=== PATIENT | female | born 1945 | race Caucasian/White ===

== ENCOUNTER 2017-11-20 19:37 | Observation (INO) | payer MEDICARE, OTHER ==
[~2017-11-20] VITALS: Ht 167.6 cm; Wt 108.0 kg
--- NOTE | ~2017-11-20 | HEMODYNAMI ---
PATIENT:CHUYITA WYLIE I MEDICAL RECORD: [id number] : 43 [facility] [id number] ADMISSION DATE: 11/20/17 Generatedon:11/21/201716:32 Patient name: CHUYITA WYLIE Patient #: [id number] SSN: DO B: 1945 Date of study: 11/21/2017 Page: Of Hemodynamic Procedure Report Patient Data Patient Demographics Procedure consent was obtained First Name: CHUYITA Gender: Female Last Name: DEJAN : 1945 [facility] Initial: I Age: 72 year(s) Patient #: [id number] Race: Unknown Additional ID: [id number] Contact details Address: [address] State: [place] City: [place] Zip code: [address] Past Medical History Allergies Allergen Reaction Date Comments Reported Penicillins 11/21/2017 Aspirin 11/21/2017 Other allergy 11/21/2017 lisinopril Admission Admission Data Admission Date: 11/20/2017 Admission Time: 21:53 Room #: 2135 Procedure Procedure Types Cath Procedure Diagnostic Procedure [facility] w/Coronaries PCI Procedure Coronary Stent Coronary Stent Initial x2 Miscellaneous Procedures Moderate Sedation up to 15 minutes Procedure Description Procedure Date Procedure Date: 11/21/2017 Procedure Start Time: 16:13 Procedure End Time: 16:31 Procedure Staff Name Function Linus Melendrez MD Performing Physician Edwige Mac RT Monitor Ammon Vallejo RT Scrub Ling Vanegas RN Nurse Procedure Data Cath Procedure Fluoroscopy Diagnostic fluoroscopy Total fluoroscopy Time: 3.3 time: 3.3 min min Diagnostic fluoroscopy Total fluoroscopy dose: 669 dose: 669 mGy mGy Contrast Material Contrast Material Type Amount (ml) Isovue 300 94 Entry Location Entry Primary Successful Side Size Upsize Upsize Entry Closure Succes sful Closure Location (Fr) 1 (Fr) 2 (Fr) Remarks Device Remarks Femoral Right 5 Fr 6 Fr Exoseal artery Short Estimated blood loss: 10 ml Diagnostic catheters Device Type Used For End Catheter Placement MULTIPACK Pigtail 5 Fr LV Angiography catheter MULTIPACK JL 4.0 5Fr Left Coronary catheter Angiography MULTIPACK 3DRC 5Fr Right Coronary catheter Angiography Procedure Complications No complications Procedure Medications Medication Administration Route Dosage 0.9% NaCl I.V. 100 ml/hr Oxygen NC 3 l/min Lidocaine 2% added to field Heparin Flush Bag added to field (1000units/500ml NS) Fentanyl I.V. 50 mcg Versed I.V. 1 mg Plavix P.O. 75 mg Fentanyl I.V. 50 mcg Versed I.V. 1 mg Heparin Bolus I.V. 4000 units Hemodynamics Rest Heart Rate: 83 (bpm) Snapshots Pre Cath Intra NCS Post Cath Vital Signs Time Heart Resp SPO2 etCO2 NIBP (mmHg) Rhythm Pain Sedation Rate (ipm) (%) (mmHg) Status Level (bpm) 15:54:57 85 20 98 0 167/87(124) NSR 0 (11) 10(A) , No pain 16:00:12 88 15 95 0 159/85(116) NSR 0 (11) 10(A) , No pain 16:05:17 92 18 97 0 130/67(99) NSR 0 (11) 10(A) , No pain 16:10:23 90 19 95 0 110/67(93) NSR 0 (11) 10(A) , No pain 16:16:29 88 16 94 0 171/88(130) NSR 0 (11) 9(A) , No pain 16:21:47 88 21 95 0 148/75(115) NSR 0 (11) 9(A) , No pain 16:26:56 92 20 98 0 167/88(134) NSR 0 (11) 10(A) , No pain Medications Time Medication Route Dose Verified Delivered Reason Not es Effectiveness by by 15:53:43 0.9% NaCl I.V. 100ml/hr Linus Dubon used for Parvin Vanegas RN procedure 15:53:51 Oxygen NC 3 l/min Linus Dubon Per physician Parvin Vanegas RN 15:53:57 Lidocaine 2% added Linus Barriga for local to Parvin Melendrez MD anesthetic field 15:54:04 Heparin Flush added Linus Barriga used for Bag to Parvin Melendrez MD procedure (1000units/500ml field NS) 16:12:07 Fentanyl I.V. 50 mcg Linus Dubon for sedation Parvin Vanegas RN 16:12:19 Versed I.V. 1 mg Linus Dubon for sedation Parvin Vanegas RN 16:13:26 Plavix P.O. 75 mg Linus Dubon for Parvin Vanegas RN antiplatelet therapy 16:14:28 Fentanyl I.V. 50 mcg Linus Dubon for sedation Parvin Vanegas RN 16:14:34 Heparin Bolus I.V. 4000 Linus Dubon for vinay ified units Parvin Vanegas RN anticoagulation by 16:14:34 Versed I.V. 1 mg Linus Dubon for sedation Parvin Vanegas RN Procedure Log Time Note 15:30:11 Ling Vanegas RN sent for patient. Start room use. 15:30:12 Time tracking: Regular hours 15:30:15 Plan of Care:Hemodynamics will remain stable., Cardiac rhythm will remain stable., Comfort level will be maintained., Respiratory function will remain adequate., Patient/ family verbilizes understanding of procedure., Procedure tolerated without complication., Recovers from procedure without complications.. 15:42:42 Patient received from PCU to CCL 1 Alert and oriented. Tansferred to table in Supine position. 15:42:43 Warm blankets applied, and alex hugger turned on for patient comfort. 15:42:44 Correct patient and procedure confirmed by team. 15:42:45 Signed procedure consent form obtained from patient. 15:42:46 ECG and BP/O2 sat monitors applied to patient. 15:42:47 Full Disclosure recording started 15:53:28 Vital chart was started 15:53:43 0.9% NaCl 100ml/hr I.V. was administered by Ling Vanegas RN; used for procedure; 15:53:51 Oxygen 3 l/min NC was administered by Ling Vanegas RN; Per physician; 15:53:57 Lidocaine 2% added to field was administered by Linus Melendrez MD; for local anesthetic; 15:54:04 Heparin Flush Bag (1000units/500ml NS) added to field was administered by Linus Melendrez MD; used for procedure; 15:55:14 Baseline sample Acquired. 15:55:18 Rhythm: sinus rhythm 15:55:30 H&P Date Dictated: 11/21/2017 Within 30 days and on chart.. 15:55:32 Pre-procedure instructions explained to patient. 15:55:32 Pre-op teaching completed and patient verbalized understanding. 15:55:33 Family in waiting room. 15:55:36 Patient NPO since Midnight. 15:55:42 Patient allergic to Penicillins 15:55:47 Patient allergic to Aspirin 15:56:00 Patient allergic to Other allergylisinopril 15:56:04 Is the patient allergic to Iodine/contrast media? No. 15:56:05 Is patient on blood thinner?No 15:56:09 Patient diabetic? No. 15:57:40 Previous problem with sedation/anesthesia? No ? 15:57:41 Snore? Yes 15:57:42 Sleep apnea? No 15:57:43 Deviated septum? No 15:57:44 Opens mouth fully? Yes 15:57:45 Sticks out tongue? Yes 15:57:47 Airway obstruction? No ? 15:57:48 Dentures? No ? 15:57:50 Pre procedure: right dorsailis pedis pulse 1+ Palpable, but thready & weak; easily obliterated 15:57:52 Patient pain scale 0/10 ?. 15:57:59 IV patent on arrival in right hand with 0.9% NaCl at O. 15:58:08 Lab results completed and on chart. 15:58:13 Right groin area was prepped with chlora-prep and draped in sterile fashion 15:58:20 Alarms reviewed by R. N. 15:58:20 Sharps counted by scrub and verified by R.N. 15:58:24 Use device set Femoral Dx 15:58:25 ACIST Syringe (61133) opened to sterile field. 15:58:25 Bag Decanter (2002S) opened to sterile field. 15:58:26 Medline Cath Pack ([id number]) opened to sterile field. 15:58:26 SHEATH 5FR [place] (RNH595) opened to sterile field. 15:58:27 DIAGNOSTIC WIRE .035 260cm J wire (799397) opened to sterile field. 15:58:28 ACIST Hand Control (48630) opened to sterile field. 15:58:28 ACIST Manifold (74595) opened to sterile field. 15:58:29 DIAGNOSTIC Multipack 5Fr catheter set (ES8909) opened to sterile field. 15:58:30 Tegaderm 4 x 4 (1626W) opened to sterile field. 15:58:30 PERCUTANEOUS ENTRY 19GA needle opened to sterile field. 16:04:45 Zero performed for pressure channel P1 16:11:34 Final Timeout: patient, procedure, and site verified with staff and physician. All members of the team are in agreement. 16:11:38 Right groin site verified by team. 16:11:41 Physical assessment completed. ASA score P 2 - A patient with mild systemic disease as per Linus Melendrez MD. 16:11:44 Sedation plan: IV Moderate Sedation Medication:Versed, Fentanyl 16:12:07 Fentanyl 50 mcg I.V. was administered by Ling Vanegas RN; for sedation; 16:12:19 Versed 1 mg I.V. was administered by Ling Vanegas RN; for sedation; 16:13:20 Procedure started. 16:13:26 Plavix 75 mg P.O. was administered by Ling Vanegas RN; for antiplatelet therapy; 16:13:26 Local anesthetic to right femoral artery with Lidocaine 2% by Linus Melendrez MD.INITIAL ACCESS ONLY 16:14:17 A 5 Fr sheath was inserted into the Right Femoral artery 16:14:28 Fentanyl 50 mcg I.V. was administered by Ling Vanegas RN; for sedation; 16:14:34 Heparin Bolus 4000 units I.V. was administered by Ling Vanegas RN; for anticoagulation; verified by 16:14:34 Versed 1 mg I.V. was administered by Ling Vanegas RN; for sedation; 16:14:52 A MULTIPACK Pigtail 5 Fr catheter was advanced over the wire and used for LV Angiography. 16:15:00 LV gram done using ANDRADE 16:15:06 EF : 55 % 16:15:09 Injector settings: Ml/sec: 10, Volume: 20, 16:15:11 Catheter removed. 16:15:20 A MULTIPACK JL 4.0 5Fr catheter was advanced over the wire and used for Left Coronary Angiography. 16:16:43 Use device set [facility] PCI 16:16:51 INFLATOR Merit BasixCompak (VQ8865) opened to sterile field. 16:16:52 SHEATH 6FR [place] (OFD787) opened to sterile field. 16:16:56 Catheter removed. 16:17:03 A MULTIPACK 3DRC 5Fr catheter was advanced over the wire and used for Right Coronary Angiography. 16:18:06 Catheter removed. 16:18:12 WHISPER 300cm guide wire ([id number]) opened to sterile field. 16:18:16 GUIDE 6FR XBLAD 3.5 catheter ([id number]) opened to sterile field. 16:18:34 Sheath upsized to a 6 Fr Short. 16:19:07 6 Fr XBLAD 3.5 guide catheter was inserted over the wire 16:19:43 Guide Catheter removed. unable to cannulate vessel. 16:19:47 GUIDE 6FR XBLAD 4.0 catheter ([id number]) opened to sterile field. 16:19:59 6 Fr XBLAD 4.0 guide catheter was inserted over the wire 16:21:37 Whisper wire advanced. 16:22:23 Inflation Number: 1 A OBDULIA OTW 3.5 x 18 stent ([id number]) was prepped and advanced across the Mid CX. The stent was deployed at 13 NU for 0:05 (min:sec). 16:22:37 Stent catheter was removed intact over wire. 16:22:42 Wire redirected to LAD. 16:24:50 Inflation Number: 1 A OBDULIA OTW 2.5 x 38 stent ([id number]) was prepped and advanced across the Mid LAD. The stent was deployed at 19 NU for 0:07 (min:sec). 16:25:06 Stent catheter was removed intact over wire. 16:25:06 Wire removed. 16:25:07 Guide catheter removed. 16:25:13 Sheath removed intact; hemostasis achieved with Exoseal to the Right Femoral artery. 16:25:23 Procedure ended.(Physican Out) 16:26:06 Fluoroscopy time 03.30 minutes. 16:26:14 Fluoroscopy dose: 669 mGy 16:26:14 Flurop Dose total: 669 16:26:17 Contrast amount:Isovue 300 94ml. 16:26:19 Sharps counted by scrub and verified by R.N. 16:26:20 Insertion/operative site no bleeding no hematoma. 16:26:22 Post-op/insertion site Right Femoral artery dressed using a 4 x 4 and Tegaderm. 16:26:25 Post right femoral artery:stable, clean and dry 16:26:27 Post Procedure Pulses reassessed and unchanged 16:26:29 Post-procedure physical assessment completed. ASA score P 2 - A patient with mild systemic disease as per Linus Melendrez MD. 16:26:31 Post procedure rhythm: unchanged. 16:26:34 Estimated blood loss: 10 ml 16:26:35 Post procedure instruction explained to patient.Patient verbalizes understanding. 16:26:36 Patient needs reinforcement of post procedure teaching. 16:26:54 Procedure type changed to Cath procedure, Diagnostic procedure, LHC, LHC w/Coronaries, PCI procedure, Coronary Stent, Coronary Stent Initial x2, Miscellaneous Procedures, Moderate Sedation up to 15 minutes 16:30:19 EXOSEAL 6Fr (EX600) opened to sterile field. 16:30:39 Procedure and supply charges have been captured, reviewed, submitted and are correct. 16:30:43 Procedure Complication : No complications 16:30:45 See physician's report for complete and final results. 16:31:38 Vital chart was stopped 16:31:41 Report given to PCU. 16:31:44 Patient transfered to PCU with Bed. 16:31:53 Procedure ended. 16:31:53 Full Disclosure recording stopped 16:31:58 End room use (Document Last) Intervention Summary Intervention Notes Time ActionType Lesion and Equipment Action# Pressure Duration Attributes Used 16:22:23 Place stent Mid CX OBDULIA OTW 3.5 1 13 00:05 x 18 stent ([id number]) 16:24:50 Place stent Mid LAD OBDULIA OTW 2.5 1 19 00:07 x 38 stent ([id number]) Device Usage Item Name Manufacture Quantity Catalog Hospital Part Current Mini mal Lot# / Number Charge Number Stock Stock Serial# Code ACIST Syringe Acist 1 11209 392084 368960 388052 20 (50979) Medical Systems Inc Bag Decanter Microtek 1 198004 87202 470499 5 () Medical Inc. Medline Cath Cardinal 1 [id number] 094821 78200 184863 5 Unified Inbox Health ([id number]) SHEATH 5FR Terumo 1 HFB210 373051 968035 746335 40 [place] (RDU454) DIAGNOSTIC St Bud 1 920516 156467 041462 857858 30 WIRE .035 260cm J wire (901319) ACIST Hand Acist 1 25777 862014 583742 455069 5 Control Medical (73479) Systems Inc ACIST Acist 1 33153 095486 426483 861560 5 Manifold Medical (05393) Systems Inc DIAGNOSTIC Cardinal 1 TY1259 616915 21568 987487 30 Multipack 5Fr Health catheter set (WM1231) Tegaderm 4 x 3M 1 1626W 949846 053580 958414 5 4 (1626W) PERCUTANEOUS Cook Medical 1 T57816 761948 815326 5 ENTRY 19GA needle MULTIPACK Cardinal 1 626800 5 Pigtail 5 Fr Health catheter MULTIPACK JL Cardinal 1 728200 5 4.0 5Fr Health catheter INFLATOR [facility] 1 UO7514 823255 043801 102338 15 Qualgenix BasixCompak (XN8509) SHEATH 6FR Terumo 1 ETG219 240400 806233 468717 40 [place] (FLX434) MULTIPACK Cardinal 1 284951 5 3DRC 5Fr Health catheter WHISPER 300cm Sigala 1 [id number] 348558 595143 353855 5 guide wire Vascular (6266051CC) GUIDE 6FR Cardinal 1 [id number] 296947 852046 023491 10 XBLAD 3.5 Health catheter (12523119) GUIDE 6FR Cardinal 1 41168031 019333 338803 270727 3 XBLAD 4.0 Health catheter (70517503) OBDULIA OTW 3.5 Medtronic 1 [id number] 443274 4020773 053294 5 [id number] x 18 stent ([id number]) OBDULIA OTW 2.5 Medtronic 1 [id number] 291766 11477 302080 5 [id number] x 38 stent ([id number]) EXOSEAL 6Fr Cardinal 1 EX600 422904 294989 601983 10 (EX600) Health Signature Audit [place] Stage Time Signature Unsigned Intra-Procedure 11/21/2017 Edwige 4:32:17 PM Counts RT(R) Signatures Monitor : Edwige Signature : Counts RT Date : Time : [place] [address] [place] [address]
--- NOTE | ~2017-11-20 | OP ---
PATIENT NAME: CHUYITA WYLIE I MEDICAL RECORD: [id number] :43 LOCATION:D.M2 D.2135 ADMISSION DATE:11/20/17 SURGEON: PRIMO PISANO MD DATE OF OPERATION: 11/21/2017 DATE OF SERVICE: 11/21/2017 PROCEDURES: 1. PTCA stent LAD. 2. PTCA stent left circumflex. 3. Left heart catheterization. 4. Selective coronary angiography. 5. Left ventriculogram. INDICATION: Angina and coronary artery disease. PROCEDURE IN DETAIL: After informed consent was obtained and after a detailed explanation of the risks, benefits as well as alternative therapies, the patient elected to proceed with angiogram and angioplasty. The right femoral area was prepped and draped in normal sterile fashion. The right femoral artery was cannulated via modified Seldinger technique with placement of 5-Djiboutian sheath. All catheters exchanged through this sheath. FINDINGS: The left ventriculogram was performed in standard 30-degree ANDRADE view, reveals good cardiac wall motion throughout all segments. Overall ejection fraction estimated at 55%. SELECTIVE CORONARY ANGIOGRAPHY: 1. Left main showed no significant angiographic disease. 2. Left anterior descending has a long area of greater than 70% stenosis in the mid vessel. 3. Left circumflex has greater than 70% stenosis in the mid vessel. 4. Right coronary has moderate irregularities, but no flow-limiting stenosis. PTCA STENT OF THE LAD AND CIRCUMFLEX: The LAD was addressed with a 2.5 x 38 mm Joaquim and the circumflex with a 3.5 x 18 mm Joaquim. Result was 0% residual stenosis. OVERALL IMPRESSION: Successful percutaneous transluminal coronary angioplasty stent of the left anterior descending and circumflex, both going from greater than 70% initial stenosis to 0% residual. TRANSINT:[id number] Voice Confirmation ID: [id number] DOCUMENT ID: [id number] PRIMO PISANO MD at 1324 CC: [id number] DICTATION DATE: 11/21/17 1631 [facility] DIRECTOR: 11/21/17 1730 DIS IN 11/22/17 [place] [address]
[2017-11-20 20:16] LABS: BASOPHILS 0.2 % (0-2); EOSINOPHILS 2.3 % (0-7); HEMATOCRIT 46.3 % (36.0-48.0); HEMOGLOBIN 15.7 g/dL (12-16); IMMATURE GRANULOCYTES 0.3 % (0-5); LYMPHOCYTES 20.8 % (15-50); MCH 31.3 pg (26.0-34.0); MCHC 33.9 g/dL (31.0-37.0); MCV 92.4 fL (80.0-100.0); MEAN PLATELET VOLUME 9.6 fL (7.4-10.4); MONOCYTES 7.9 % (2-11); NEUTROPHILS 68.5 % (40-80); RBC 5.01 10x6/uL (4.00-5.40); RDW 12.9 % (11.5-14.5); WBC 12.8 10x3/uL (4.8-10.8)
[2017-11-20 20:18] LABS: PLATELET COUNT 241 10x3/uL (130-400)
[2017-11-20 20:31] LABS: ALBUMIN 3.7 g/dL (3.4-5.0); ALKALINE PHOSPHATASE 101 U/L (46-116); ALT (SGPT) 16 U/L (10-68); BILIRUBIN - TOTAL 0.79 mg/dL (0.2-1.3); CALC OSMOLALITY 270 mosm/kg (275-300); CALCIUM 11.6 mg/dL (8.5-10.1); CARBON DIOXIDE 30.8 mmol/L (21.0-32.0); CHLORIDE - SERUM 99 mmol/L (98-107); CREATININE - SERUM 0.7 mg/dL (0.6-1.3); GLUCOSE 134 mg/dL (74-106); POTASSIUM - SERUM 3.5 mmol/L (3.5-5.1); PROTEIN - SERUM 7.9 g/dL (6.4-8.2); SODIUM 135 mmol/L (136-145); UREA NITROGEN 9 mg/dL (7-18); eGFR NON AFRICAN AMERICAN 87 mL/min (90-120)
[2017-11-20 20:41] LABS: CHOL - HDL RATIO 3.7 ratio (2.3-4.1); CHOLESTEROL, TOTAL 175 mg/dL (0-200); CKMB 0.4 U/L (0.0-3.6); CREATINE KINASE 58 UL (21-215); HDL CHOLESTEROL 47 mg/dL (32-96); LDL CHOLESTEROL 93 mg/dL (0-100); TRIGLYCERIDE 178 mg/dL (30-200)
[2017-11-20 20:43] LABS: TROPONIN-I < 0.017 ng/mL (0.000-0.060)
[2017-11-20 21:52] LABS: APPEARANCE CLEAR (CLEAR); BILIRUBIN NEGATIVE (NEGATIVE); COLOR YELLOW (YELLOW); GLUCOSE NEGATIVE (NEGATIVE); KETONE NEGATIVE (NEGATIVE); NITRITE NEGATIVE (NEGATIVE); PROTEIN NEGATIVE (NEGATIVE); UROBILINOGEN NORMAL (NORMAL)
[2017-11-20 21:56] LABS: BACTERIA FEW /hpf (NONE SEEN); EPITHELIAL CELLS 0-5 /hpf (0-5); RED CELLS - URINE 0-5 /hpf (0-5); WHITE CELLS - URINE 0-5 /hpf (0-5)
[2017-11-20 22:55] LABS: CREATINE KINASE 69 UL (21-215)
[2017-11-20 22:58] LABS: TROPONIN-I < 0.017 ng/mL (0.000-0.060)
[2017-11-21 00:59] VITALS: BP 153/67
[2017-11-21] MEDS ORDERED: HCTZ25 MG PO (02:12)
[2017-11-21 04:33] LABS: BASOPHILS 0.1 % (0-2); EOSINOPHILS 0.2 % (0-7); HEMATOCRIT 45.2 % (36.0-48.0); HEMOGLOBIN 15.3 g/dL (12-16); IMMATURE GRANULOCYTES 0.3 % (0-5); LYMPHOCYTES 11.6 % (15-50); MCH 31.2 pg (26.0-34.0); MCHC 33.8 g/dL (31.0-37.0); MCV 92.2 fL (80.0-100.0); MEAN PLATELET VOLUME 9.8 fL (7.4-10.4); MONOCYTES 3.8 % (2-11); PLATELET COUNT 246 10x3/uL (130-400); RDW 12.7 % (11.5-14.5); WBC 13.8 10x3/uL (4.8-10.8)
[2017-11-21 04:54] LABS: ALBUMIN 3.6 g/dL (3.4-5.0); ALKALINE PHOSPHATASE 115 U/L (46-116); ALT (SGPT) 77 U/L (10-68); CALC OSMOLALITY 279 mosm/kg (275-300); CALCIUM 11.3 mg/dL (8.5-10.1); CARBON DIOXIDE 30.1 mmol/L (21.0-32.0); CHLORIDE - SERUM 101 mmol/L (98-107); CREATINE KINASE 62 UL (21-215); CREATININE - SERUM 0.7 mg/dL (0.6-1.3); GLUCOSE 155 mg/dL (74-106); POTASSIUM - SERUM 3.9 mmol/L (3.5-5.1); PROTEIN - SERUM 7.7 g/dL (6.4-8.2); SODIUM 139 mmol/L (136-145); TROPONIN-I < 0.017 ng/mL (0.000-0.060); UREA NITROGEN 9 mg/dL (7-18); eGFR NON AFRICAN AMERICAN 87 mL/min (90-120)
[2017-11-21] MEDS ORDERED: MONODOX100 MG PO (05:10)
[2017-11-21] MEDS ORDERED: CYMBALTA30 MG PO (05:10)
[2017-11-21] MEDS ORDERED: PROAIR HFA8.5 GM INH (05:11)
[2017-11-21] MEDS ORDERED: ISOSORBIDE MONO60 M1 PO (05:11)
[2017-11-21] MEDS ORDERED: BETAPACE 80 MG80 MG PO (05:11)
[2017-11-21] MEDS ORDERED: LOSARTAN POTASS25 MG PO (05:12)
[2017-11-21 05:27] VITALS: BP 162/71
[2017-11-21 08:52] VITALS: BP 130/74
[2017-11-21 10:47] LABS: CREATINE KINASE 47 UL (21-215)
[2017-11-21 11:01] LABS: TROPONIN-I < 0.017 ng/mL (0.000-0.060)
[2017-11-21 12:07] VITALS: BP 145/84
[2017-11-21 19:00] VITALS: BP 149/70
[2017-11-22] VITALS: BP 155/74
[2017-11-22 04:00] VITALS: BP 147/97
[2017-11-22 04:22] VITALS: Ht 167.6 cm; Wt 108.0 kg
[2017-11-22 07:51] VITALS: BP 148/76
[2017-11-22] MEDS ORDERED: PLAVIX75 MG PO (09:38)
== END 2017-11-22 10:36 | disposition home or self-care (01) ==
LOC: D.ER 19:37 → D.M2 21:53 → OBSVTIME 21:53 → D.M2 11-22 10:36
PROVIDERS: Family Medicine; Physician Assistant Medical
DX: I25.110 Atherosclerotic heart disease of native coronary artery with unstable angina pectoris (principal); Z95.5 Presence of coronary angioplasty implant and graft; I10 Essential (primary) hypertension
CPT/HCPCS: 93458; C9600 ×2

== ENCOUNTER 2018-12-14 12:25 | Inpatient (IN) | payer MEDICARE, OTHER ==
[~2018-12-14] VITALS: Ht 167.6 cm; Wt 107.7 kg
--- NOTE | ~2018-12-14 | HEMODYNAMI ---
PATIENT:CHUYITA WYLIE I MEDICAL RECORD: [id number] : 43 [id number] ADMISSION DATE: 12/14/18 Generatedon:12/15/201814:45 Patient name: CHUYITA WYLIE Patient #: [id number] SSN: DO B: 1945 Date of study: 12/15/2018 Page: Of Hemodynamic Procedure Report Patient Data Patient Demographics Procedure consent was obtained First Name: CHUYITA Gender: Female Last Name: DEJAN : 1945 [facility] Initial: I Age: 73 year(s) Patient #: [id number] Race: Additional ID: [id number] Contact details Address: [address] State: [place] City: [place] Zip code: [address] Past Medical History Allergies Allergen Reaction Date Comments Reported Penicillins 11/21/2017 Aspirin 11/21/2017 Other allergy 11/21/2017 lisinopril Admission Admission Data Admission Date: 12/14/2018 Admission Time: 15:18 Room #: D.2118 Procedure Procedure Types Cath Procedure Diagnostic Procedure [facility] w/Coronaries Procedure Description Procedure Date Procedure Date: 12/15/2018 Procedure Start Time: 14:27 Procedure End Time: 14:41 Procedure Staff Name Function Chay Zelaya MD Performing Physician Marybeth Trinidad RT Monitor Etienne Patterson RT Monitor April Car RT Scrub Ryland Burns RN Nurse Procedure Data Cath Procedure Fluoroscopy Diagnostic fluoroscopy Total fluoroscopy Time: 1.6 time: 1.6 min min Diagnostic fluoroscopy Total fluoroscopy dose: 552 dose: 552 mGy mGy Contrast Material Contrast Material Type Amount (ml) Isovue 300 39 Entry Location Entry Primary Successful Side Size Upsize Upsize Entry Closure Succes sful Closure Location (Fr) 1 (Fr) 2 (Fr) Remarks Device Remarks Femoral Right 5 Fr Exoseal artery Estimated blood loss: 552 ml Diagnostic catheters Device Type Used For End Catheter Placement DIAGNOSTIC JL 5 5Fr Left Coronary catheter ([id number]) Angiography Procedure Complications No complications Procedure Medications Medication Administration Route Dosage Oxygen etCO2 Nasal cannula 2 l/min Heparin Flush Bag added to field 2 bags (1000units/500ml NS) 0.9% NaCl I.V. 100 ml/hr Lidocaine 2% added to field 20 Radial Cocktail added to field 1 syringe (Verapomil 2mg/Nitro 400mcg/Heparin 1500units) Fentanyl I.V. 50 mcg Versed I.V. 1 mg Fentanyl I.V. 50 mcg Versed I.V. 1 mg Fentanyl I.V. 50 mcg Fentanyl I.V. 50 mcg Hemodynamics Rest Heart Rate: 106 (bpm) Pressure Samples Time Site Value (mmHg) Purpose Heart Use Rate(bpm) 14:37 LV 128/9,5 Snapshot 121 14:37 LV 135/2,12 Snapshot 96 14:38 AO 136/85(107) Pullback 108 Gradients Valve Time Site Site 2 Mean SEP/DFP Peak To Heart Use 1 (mmHg) (sec/min) Peak Rate (mmHg) (bpm) Aortic 14:38 LV AO 8 24 108 136/85(107) Calculations Valve P-P Mean Valve Index Valve Source Name Gradient Area Flow (cm2) Aortic 8 8 Snapshots Pre Cath Intra NCS Post Cath Vital Signs Time Heart Resp SPO2 etCO2 NIBP (mmHg) Rhythm Pain Sedation Rate (ipm) (%) (mmHg) Status Level (bpm) 14:17:15 104 16 100 32.8 166/120(141) NSR 0 (11) 10(A) , No pain 14:21:54 107 19 100 16.4 147/91(127) NSR 0 (11) 10(A) , No pain 14:26:18 120 18 95 3.7 113/65(77) NSR 0 (11) 10(A) , No pain 14:30:32 94 16 96 10.4 134/101(117) NSR 0 (11) 9(A) , No pain 14:34:54 101 17 95 14.1 107/90(101) NSR 0 (11) 9(A) , No pain 14:39:53 98 18 96 13.4 Measuring NSR 0 (11) 9(A) , No pain 14:40:12 114 18 96 14.1 143/97(124) NSR 0 (11) 9(A) , No pain Medications Time Medication Route Dose Verified Delivered Reason Notes Ef fectiveness by by 14:16:06 Oxygen etCO2 2 l/min Chay Ryland Per Nasal Garcia Burns RN physician cannula 14:16:14 Heparin Flush added 2 bags Chay Ryland used for Bag to Garcia Burns car clerk pullman (1000units/500ml field NS) 14:16:23 0.9% NaCl I.V. 100 Chay Ryland Per ml/hr Garcia Burns RN physician 14:16:34 Lidocaine 2% added 20ml Chay Ryland used for to vial Garcia Burns car clerk pullman field 14:16:42 Radial Cocktail added 1 Chay Ryland used for (Verapomil to syringe Garcia Burns car clerk pullman 2mg/Nitro field 400mcg/Heparin 1500units) 14:27:15 Fentanyl I.V. 50 mcg Chay Ryland for Garcia Burns RN sedation 14:27:22 Versed I.V. 1 mg Chay Ryland for Garcia Burns RN sedation 14:31:26 Fentanyl I.V. 50 mcg Chay Ryland for Garcia Burns RN sedation 14:31:30 Versed I.V. 1 mg Chay Ryland for Garcia Burns RN sedation 14:35:42 Fentanyl I.V. 50 mcg Chay Ryland for Garcia Burns RN sedation 14:37:34 Fentanyl I.V. 50 mcg Chay Ryland for Garcia Burns RN sedation Procedure Log Time Note 13:50:43 Etienne Patterson RT(R) sent for patient. Start room use. 13:51:47 Informed consent obtained and on chart 13:52:44 Time tracking: Regular hours (M-F 7:00 - 5:00) 13:52:49 Plan of Care:Hemodynamics will remain stable., Cardiac rhythm will remain stable., Comfort level will be maintained., Respiratory function will remain adequate., Patient/ family verbilizes understanding of procedure., Procedure tolerated without complication., Recovers from procedure without complications.. 14:08:20 Patient received from Med II to CCL 1 Alert and oriented. Tansferred to table in Supine position. 14:08:21 Warm blankets applied, and alex hugger turned on for patient comfort. 14:08:22 Correct patient and procedure confirmed by team. 14:08:22 ECG and BP/O2 sat monitors applied to patient. 14:15:46 Vital chart was started 14:16:06 Oxygen 2 l/min etCO2 Nasal cannula was administered by Ryland Burns RN; Per physician; 14:16:14 Heparin Flush Bag (1000units/500ml NS) 2 bags added to field was administered by Ryland Burns RN; used for procedure; 14:16:23 0.9% NaCl 100 ml/hr I.V. was administered by Ryland Burns RN; Per physician; 14:16:34 Lidocaine 2% 20ml vial added to field was administered by Ryland Burns RN; used for procedure; 14:16:42 Radial Cocktail (Verapomil 2mg/Nitro 400mcg/Heparin 1500units) 1 syringe added to field was administered by Ryland Burns RN; used for procedure; 14:20:00 Baseline sample Acquired. 14:20:11 Rhythm: sinus tachycardia 14:20:13 Full Disclosure recording started 14:20:21 H&P Date Dictated: 12/15/2018 Within 30 days and on chart., H&P Addendum completed by physician on day of procedure. (MUST COMPLETE FOR ALL OUTPATIENTS). 14:20:23 Pre-procedure instructions explained to patient. 14:20:23 Pre-op teaching completed and patient verbalized understanding. 14:20:25 Family in waiting room. 14:20:28 Patient NPO since Midnight. 14:20:30 Is the patient allergic to Iodine/contrast media? No. 14:20:31 Was the patient premedicated? No 14:20:32 Is patient on blood thinner?No 14:20:34 Patient diabetic? No. 14:20:37 Previous problem with sedation/anesthesia? No ? 14:20:40 Snore? Yes 14:20:41 Sleep apnea? No 14:20:42 Deviated septum? No 14:20:42 Opens mouth fully? Yes 14:20:43 Sticks out tongue? Yes 14:20:46 Airway obstruction? No ? 14:20:53 Dentures? No ? 14:20:57 Pre procedure: right dorsailis pedis pulse 2+ Normal; easily identifiable; not easily obliterated 14:20:59 Pre procedure: left dorsailis pedis pulse 2+ Normal; easily identifiable; not easily obliterated 14:21:01 Patient pain scale 0/10 ?. 14:21:10 IV patent on arrival in right hand with 0.9% NaCl at [facility]. 14:21:12 Lab results completed and on chart. 14:21:22 Right Radial & Right Groin area was prepped with chlora-prep and draped in sterile fashion 14:21:25 Alarms reviewed by R. N. 14:: Sharps counted by scrub and verified by R.N. 14:21:54 Physician arrived 14::55 --------ALL STOP TIME OUT------ 14:21:56 Final Timeout: patient, procedure, and site verified with staff and physician. All members of the team are in agreement. 14:21:57 Right Radial & Left Groin site verified by team. 14:22:03 Fire Safety Assessment: A--An alcohol-based skin anteseptic being used preoperatively., C--Open oxygen or nitrous oxide is being used., D--An ESU, laser, or fiber-optic light is being used. 14:22:09 Physical assessment completed. ASA score P 2 - A patient with mild systemic disease as per Chay Zelaya MD. 14:22:14 Sedation plan: IV Moderate Sedation Medication:Versed, Fentanyl 14:22:19 Use device set Radial Dx or PCI 14:22:20 ACIST Syringe (31440) opened to sterile field. 14:22:21 Medline Cath Pack ([id number]) opened to sterile field. 14:22:21 Bag Decanter () opened to sterile field. 14:22:22 DIAGNOSTIC WIRE .035 260cm J wire (696447) opened to sterile field. 14:22:22 ACIST Hand Control (91101) opened to sterile field. 14:22:23 ACIST Manifold (16973) opened to sterile field. 14:22:23 Tegaderm 4 x 4 (1626W) opened to sterile field. 14:22:25 MBrace Wrist Support ([id number]) opened to sterile field. 14:22:26 SHEATH 6FR Slender (78-1060) opened to sterile field. 14:24:34 Zero performed for pressure channel P1 14:24:40 Zero performed for pressure channel P1 14:24:47 Zero performed for pressure channel P1 14:27:15 Fentanyl 50 mcg I.V. was administered by Ryland Burns RN; for sedation; 14:27:22 Versed 1 mg I.V. was administered by Ryland Burns RN; for sedation; 14:27:32 Procedure started. 14:27:39 Local anesthetic to right radial artery with Lidocaine 2% by Chay Zelaya MD.INITIAL ACCESS ONLY 14:28:33 Local anesthetic to right femoral artery with Lidocaine 2% by Chay Zelaya MD.ADDITIONAL ACCESS 14:28:53 SHEATH 5FR Bigfork (YUZ434) opened to sterile field. 14:29:01 DIAGNOSTIC Multipack 5Fr catheter set (YJ8876) opened to sterile field. 14:29:46 A 5 Fr sheath was inserted into the Right Femoral artery 14:30:18 5 Fr jl 4 guide catheter was inserted over the wire 14:31:26 Fentanyl 50 mcg I.V. was administered by Ryland Burns RN; for sedation; 14:31:30 Versed 1 mg I.V. was administered by Ryland Burns RN; for sedation; 14:31:44 Catheter removed. 14:32:08 A DIAGNOSTIC JL 5 5Fr catheter ([id number]) was advanced over the wire and used for Left Coronary Angiography. 14:33:14 LCA angiography performed. 14:33:29 Injector settings: Ml/sec: 3, Volume: 6, 14:34:10 Catheter removed. 14:34:18 5 Fr 3drc guide catheter was inserted over the wire 14:35:16 RCA angiography performed. 14:35:20 Injector settings: Ml/sec: 3, Volume: 6, 14:35:42 Fentanyl 50 mcg I.V. was administered by Ryland Burns RN; for sedation; 14:36:50 Catheter removed. 14:37:00 5 Fr pigtail guide catheter was inserted over the wire 14:37:34 Fentanyl 50 mcg I.V. was administered by Ryland Burns RN; for sedation; 14:37:35 LV hemodynamics recorded. 14:37:36 LV gram done using ANDRADE 14:37:39 Injector settings: Ml/sec: 5, Volume: 15, 14:37:55 EF : 55 % 14:38:10 Catheter removed. 14:39:28 EXOSEAL 5Fr (EX500) opened to sterile field. 14:39:41 Sheath removed intact; hemostasis achieved with Exoseal to the Right Femoral artery. 14:39:43 Procedure ended.(Physican Out) 14:40:06 Fluoroscopy time 01.60 minutes. 14:40:10 Flurop Dose total: 552 14:40:10 Fluoroscopy dose: 552 mGy 14:40:16 Contrast amount:Isovue 300 39ml. 14:40:17 Sharps counted by scrub and verified by R.N. 14:40:23 Insertion/operative site no bleeding no hematoma. 14:40:26 Post-op/insertion site Right Femoral artery dressed using a 4 x 4 and Tegaderm. 14:40:30 Post right femoral artery:stable 14:40:38 Post Procedure Pulses reassessed and unchanged 14:40:41 Post procedure rhythm: unchanged. 14:40:46 Estimated blood loss: 552 ml 14:40:49 Post procedure instruction explained to patient.Patient verbalizes understanding. 14:40:49 Patient needs reinforcement of post procedure teaching. 14:41:00 Procedure and supply charges have been captured, reviewed, submitted and are correct. 14:41:05 Procedure Complication : No complications 14:41:07 Vital chart was stopped 14:41:08 See physician's report for complete and final results. 14:41:20 Report given to [facility]. 14:41:23 Patient transfered to [facility] with Stretcher. 14:41:25 Procedure ended. 14:41:25 Full Disclosure recording stopped 14:41:33 End room use (Document Last) Device Usage Item Name Manufacture Quantity Catalog Hospital Part Current Minimal Lot# / Number Charge Number Stock Stock Serial# Code ACIST Acist 1 37313 089059 561617 053761 20 Syringe Medical (61933) Systems Inc Medline Medline 1 [id number] 572205 68979 192030 5 Cath Pack ([id number]) Bag Microtek 1 2001S 730153 48636 320344 5 Decanter Medical Inc. () DIAGNOSTIC St Bud 1 357215 114264 568036 175966 30 WIRE .035 260cm J wire (561015) ACIST Hand Acist 1 03894 991829 069168 512592 5 Control Medical (63213) Systems Inc ACIST Acist 1 70933 613909 170116 393108 5 Manifold Medical (23309) Systems Inc Tegaderm 4 3M 1 1626W 386332 399207 531250 5 x 4 (1626W) MBrace Advanced 1 140-0250-00 836761 33470 839725 5 Wrist Vascular Support Dynamics (131385535) SHEATH 6FR Terumo 1 [id number] 594202 736795 639561 5 Slender (80-1060) SHEATH 5FR Terumo 1 MFO464 923299 607390 191798 5 Bigfork (GPQ745) DIAGNOSTIC Cardinal 1 EW9693 794972 86520 782488 30 Multipack Health 5Fr catheter set (WS9237) DIAGNOSTIC Cardinal 1 554234X 130987 752758 228136 5 JL 5 5Fr Health catheter (620794Y) EXOSEAL 5Fr Cardinal 1 EX500 243657 591224 593655 10 (EX500) Health Signature Audit [place] Stage Time Signature Unsigned Intra-Procedure 12/15/2018 Marybeth Trinidad 2:45:12 PM RT(R) Signatures Monitor : Marybeth Trinidad RT Signature : Date : Time : Monitor : Etienne Patterson Signature : RT Date : Time : [id number] [place] [address]
[~2018-12-14 12:25] MED LIST: BETAPACE 80 MG80 MG PO; CYMBALTA30 MG PO; HCTZ25 MG PO; ISOSORBIDE MONO60 M1 PO; LOSARTAN POTASS25 MG PO; MONODOX100 MG PO; PLAVIX75 MG PO; PROAIR HFA8.5 GM INH
[2018-12-14 13:02] VITALS: BP 142/79
[2018-12-14 13:09] LABS: BASOPHILS 0.3 % (0-2); EOSINOPHILS 2.7 % (0-7); HEMATOCRIT 45.1 % (36.0-48.0); HEMOGLOBIN 15.4 g/dL (12-16); IMMATURE GRANULOCYTES 0.2 % (0-5); LYMPHOCYTES 35.4 % (15-50); MCH 30.6 pg (26.0-34.0); MCHC 34.1 g/dL (31.0-37.0); MCV 89.7 fL (80.0-100.0); MONOCYTES 7.7 % (2-11); NEUTROPHILS 53.7 % (40-80); RBC 5.03 10x6/uL (4.00-5.40); RDW 13.6 % (11.5-14.5); WBC 10.8 10x3/uL (4.8-10.8)
[2018-12-14 13:13] LABS: PLATELET COUNT 296 10x3/uL (130-400)
[2018-12-14 13:26] LABS: APTT 28.5 SECONDS (22.8-39.4); INR 1.01 (0.85-1.17); PROTIME 12.8 SECONDS (11.6-15.0)
[2018-12-14 13:29] LABS: ALBUMIN 3.5 g/dL (3.4-5.0); ALKALINE PHOSPHATASE 83 U/L (46-116); ALT (SGPT) 17 U/L (10-68); BILIRUBIN - TOTAL 0.54 mg/dL (0.2-1.3); CALC OSMOLALITY 277 mosm/kg (275-300); CALCIUM 10.7 mg/dL (8.5-10.1); CHLORIDE - SERUM 102 mmol/L (98-107); CREATININE - SERUM 0.7 mg/dL (0.6-1.3); GLUCOSE 121 mg/dL (74-106); POTASSIUM - SERUM 3.3 mmol/L (3.5-5.1); PROTEIN - SERUM 7.7 g/dL (6.4-8.2); SODIUM 139 mmol/L (136-145); UREA NITROGEN 10 mg/dL (7-18); eGFR NON AFRICAN AMERICAN 87 mL/min (90-120)
[2018-12-14 13:40] LABS: CREATINE KINASE 71 UL (21-215); MAGNESIUM - SERUM 2.2 mg/dL (1.8-2.4); TROPONIN-I < 0.017 ng/mL (0.000-0.060)
[2018-12-14 14:00] VITALS: BP 104/63
[2018-12-14 15:00] VITALS: BP 106/59
[2018-12-14 16:00] VITALS: BP 95/68
[2018-12-14 16:38] VITALS: BP 146/85; Ht 167.6 cm; Wt 107.7 kg
--- NOTE | 2018-12-14 16:38 | NUR ---
ASSESSMENT COMPLETE RESP UNLABORED AAOX4 SKIN W/D COLOR WNL DENIES ANY NEEDS OR DISCOMFORT TELEMETRY APPLIED SR RATE 75 NAD NOTED
--- NOTE | 2018-12-14 17:01 | NUR ---
WITHOUT CHANGES OR DISTRESS NOTED AT THIS TIME. DENIES NEEDS.
[2018-12-14] MEDS ORDERED: LIPITOR20 MG PO (17:04)
[2018-12-14] MEDS ORDERED: CO Q-10100 MG PO (17:07)
[2018-12-14] MEDS ORDERED: FISH OIL 1,0001 CA1 PO (17:10)
--- NOTE | 2018-12-14 19:57 | NUR ---
INITIAL ROUNDS AND ASSESSMENT COMPLETED. PT RESTING IN BED WITH NO DISTRESS. 93/CAF PER TELEMETRY. SALINE LOCK TO RIGHT HAND, MONITOR AND CPOC.
[2018-12-14 20:00] VITALS: BP 100/56
--- NOTE | 2018-12-14 23:43 | NUR ---
PT SITTING ON SIDE OF BED. VOICING NO NEEDS. ALERT/ORIENTED. ASKING ABOUT HER HOME MEDS. ALL MEDS ON HOLD UNTIL REVIEWED BY MD. PT VOICED UNDERSTANDING. PLUS SHE WILL BE NPO AFTER MIDNIGHT FOR HEART CATH IN THE AM. MONITOR AND CPOC.
[2018-12-15] VITALS: BP 149/59
--- NOTE | 2018-12-15 01:49 | NUR ---
PT RESTING IN BED WITH EYES CLOSED. RESPS EVEN/NONLABORED. NO DISTRESS. CALL LIGHT IN REACH.
[2018-12-15 04:00] VITALS: BP 139/75
[2018-12-15 06:58] LABS: BASOPHILS 0.3 % (0-2); EOSINOPHILS 2.5 % (0-7); HEMATOCRIT 44.3 % (36.0-48.0); HEMOGLOBIN 14.9 g/dL (12-16); IMMATURE GRANULOCYTES 0.1 % (0-5); LYMPHOCYTES 35.2 % (15-50); MCHC 33.6 g/dL (31.0-37.0); MCV 89.3 fL (80.0-100.0); MEAN PLATELET VOLUME 9.9 fL (7.4-10.4); MONOCYTES 8.5 % (2-11); NEUTROPHILS 53.4 % (40-80); PLATELET COUNT 248 10x3/uL (130-400); RBC 4.96 10x6/uL (4.00-5.40); RDW 13.7 % (11.5-14.5); WBC 8.6 10x3/uL (4.8-10.8)
[2018-12-15 07:18] LABS: CALC OSMOLALITY 278 mosm/kg (275-300); CALCIUM 10.3 mg/dL (8.5-10.1); CARBON DIOXIDE 26.7 mmol/L (21.0-32.0); CHLORIDE - SERUM 105 mmol/L (98-107); CREATININE - SERUM 0.7 mg/dL (0.6-1.3); GLUCOSE 123 mg/dL (74-106); POTASSIUM - SERUM 3.4 mmol/L (3.5-5.1); SODIUM 140 mmol/L (136-145); UREA NITROGEN 11 mg/dL (7-18); eGFR NON AFRICAN AMERICAN 87 mL/min (90-120)
[2018-12-15 07:23] LABS: TROPONIN-I < 0.017 ng/mL (0.000-0.060)
--- NOTE | 2018-12-15 08:16 | NUR ---
ASSESSMENT DONE. DENIES NEEDS.
[2018-12-15 08:52] VITALS: BP 142/89
[2018-12-15 11:43] VITALS: BP 128/78
--- NOTE | 2018-12-15 14:08 | NUR ---
TO ICT MANAGERS PER BED
--- NOTE | 2018-12-15 15:04 | NUR ---
RETURN FROM CATH PER BED, RT GROIN ANTONY C/D/I
[2018-12-15 16:08] VITALS: BP 132/73
--- NOTE | 2018-12-15 17:00 | NUR ---
WITHOUT CHANGES OR DISTRESS NOTED AT THIS TIME. DENIES NEEDS.
--- NOTE | 2018-12-15 18:46 | MORECARE ---
CASE MANAGEMENT DISCHARGE SUMMARY PATIENT: CHUYITA WYLIE I UNIT: [id number] ADM DATE: 12/15/18 AGE: 73 : 43 SEX: F ROOM/BED: D.6528 AUTHOR: LIZA NERI PHYSICIAN: REFERRING PHYSICIAN: HIRO DELGADO M.D. DATE OF SERVICE: 12/15/18 Discharge Plan Patient Name: CHUYITA WYLIE Facility: [facility]:[place] : 1945 Planned Disposition: Home Anticipated Discharge Date: 12/15/18 Discharge Date: Expected LOS: 1 Initial Reviewer: ALEX Initial Review Date: 12/15/2018 Generated: 12/15/18 7:46 pm Comments DCP- Discharge Planning Updated by [email or web address]: Chano Arreola on 12/15/18 5:[address] Patient Name: CHUYITA WYLIE Admission Status: ER Accout number: [id number] Admission Date: 12-15-2018 : 1945 Admission Diagnosis: Attending: HIRO DELGADO Current LOS: 1 Anticipated DC Date: 12-15-2018 Planned Disposition: Home Primary Insurance: MEDICARE A & B Discharge Planning Comments: CM RECEIVED ORDER FOR LIVING WILL INFORMATION. CM MET WITH PT IN ROOM TO DISCUSS DISCHARGE PLANNING AND NEEDS. PT REPORTS LIVING AT HOME INDEPENDENTLY WITH HER SPOUSE. PT HAS A CANE AND BACK BRACE WITH NO MEDICAL EQUIPMENT PROVIDER PREFERENCE. PT HAS NO OUTSIDE SERVICES ASSISTING IN THE HOME. CM DISCUSSED AVAILABILITY OF HOME HEALTH, REHAB SERVICES AND MEDICAL EQUIPMENT. PT DENIES DISCHARGE NEEDS, REPORTS HER SPOUSE WILL PICK HER UP FOR DISCHARGE HOME. CM PROVIDED AND DISCUSSED LIVING WILL AND MEDICAL POWER OF AVIATION SURVIVAL TECHNICIAN BOOKLET. CM EXPLAINED AVAILABILITY OF FREE HOSPITAL NOTARY FOR THE MENTIONED PAPERWORK IF PT WISHES TO COMPLETE AT HOSPITAL. PT REPORTS UNDERSTANDING, DENIES FURTHER NEEDS. PT PLANS TO DISCHARGE HOME WITH SPOUSE, HAS NOT ANTICIPATED DISCHARGE NEEDS. CM TO FOLLOW AND ASSIST IF NEEDED. Front Office Secretary: Chano Arreola DCPIA - Discharge Planning Initial Assessment Updated by [id number]: Chano Arreola on 12/15/18 6:41 pm * Is the patient Alert and Oriented? Yes * How many steps to enter\exit or inside your home? * PCP DR. RODRÍGUEZ * Pharmacy [facility] [address] * Preadmission Environment Home with Family * ADLs Independent * Equipment Cane Other * Other Equipment BACK BRACE NO MEDICAL EQUIPMENT PROVIDER PREFERENCE * List name and contact numbers for known caregivers / representatives who currently or will assist patient after discharge: CHRISTIANO WYLIE, SPOUSE, [phone] * Verbal permission to speak to the caregivers and representatives has been obtained from the patient. N/A * Community resources currently utilized None * Please name any agencies selected above. NONE * Additional services required to return to the preadmission environment? No * Can the patient safely return to the preadmission environment? Yes * Has this patient been hospitalized within the prior 30 days at any hospital? No Coverage Notice Reviewer: [id number] Mehnaz Lundberg Notice Issued Date-Time: 12/15/2018 15:00 Notice Type: Medicare Outpatient Observation Notice Notice Delivered To: Patient Relationship to Patient: Self Bookkeeping Teacher Name: Delivery Method: HAND - Hand Delivered Margo Days: Prior Verbal Notification: Recipient Understood Notice: Yes Recipient Signature: Med Rec Note Co-signed by Attending: Coverage Notice Comment: PATIENT JUST BACK FROM PROCEDURE AND UNABLE TO SIGN THE PAPERWORK, STATED UNDERSTAND. COPY LEFT AT BEDSIDE WITH MY NAME AND NUMBER INCASE SHE WAKES UP AND HAS QUESTIONS OR DOESN'T REMEMBER OUR CONVERSATION. Patient Name: CHUYITA WYLIE Page [phone] at 1846 All edits/amendments must be made on the electronic document DICTATION DATE: 12/15/181844 WASTE SPECIALIST: HERBERT 12/15/181844 RPT#: [id number] DC DATE: STATUS: ADM IN [facility] [address] [place] [address] END OF REPORT
--- NOTE | 2018-12-15 19:47 | NUR ---
PT ASLEEP. AROUSES TO NURSE IN ROOM. NAME AND DATE PLACED ON BOARD. CARDIZEM INFUSING AT 5 TO RIGHT HAND. FIXED PT GOWN AND ASSISTED WITH REPOSITONING. PT DENIES ANY OTHER NEEDS. DISCUSSED POC AND PT VERBALIZED UNDERSTANDING. WILL CPOC
[2018-12-15 20:00] VITALS: BP 112/67
--- NOTE | 2018-12-15 23:49 | NUR ---
PT ASLEEP. 86 CAF. PT HAS NO S/S OF DISTRESS. RESP EVEN AND UNLABORED. BEDLOW AND CALL LIGHT IN REACH. WILL CPOC
[2018-12-16 00:06] VITALS: BP 117/66
--- NOTE | 2018-12-16 02:20 | NUR ---
PT IS 71 CONTROLLED A FIB ON THE MONITOR
[2018-12-16 04:00] VITALS: BP 131/72
--- NOTE | 2018-12-16 06:13 | NUR ---
REPLACED PT ARM BAND, PT RESTING ON RIGHT SIDE. ASKING WHEN DR'S WILL BE HERE. PT DENIES ANY NEEDS. NO S/S OF DISTRESS. PT IS 66 CONTROLLED A FIB ON THE MONITOR. CARDIZEM INFUSING AT 5 TO RIGHT HAND. PT DENIES ANY NEEDS. NO S/S OF DISTRESS. WILL CPOC
[2018-12-16 07:47] VITALS: BP 123/72
--- NOTE | 2018-12-16 09:44 | NUR ---
TELEMETRY CAF. IV PATENT. UP SOB WITH CALL LIGHT IN REACH. WILL CONT. PLAN OF CARE.
[2018-12-16 11:10] VITALS: BP 126/81
[2018-12-16 15:28] VITALS: BP 138/64
--- NOTE | 2018-12-16 16:09 | NUR ---
IV AND TELEMETRY DCD. DC PLANS GIVEN. UNDERSTANDING VOICED. ESCORTED TO CAR BY W/C.
--- NOTE | 2018-12-16 18:14 | MORECARE ---
CASE MANAGEMENT DISCHARGE SUMMARY PATIENT: CHUYITA WYLIE I UNIT: [id number] ADM DATE: 12/15/18 AGE: 73 : 44 SEX: F ROOM/BED: D.8735 AUTHOR: LIZA NERI PHYSICIAN: REFERRING PHYSICIAN: HIRO DELGADO M.D. DATE OF SERVICE: 12/16/18 Discharge Plan Patient Name: CHUYITA WYLIE Facility: [facility]:[place] : 1945 Planned Disposition: Home Anticipated Discharge Date: 12/16/18 Discharge Date: 12/16/2018 Expected LOS: 1 Initial Reviewer: [email or web address] Initial Review Date: 12/15/2018 Generated: 12/16/18 7:14 pm Comments DCP- Discharge Planning Updated by [email or web address]: Chano Arreola on 12/16/18 5:[address] Patient Name: CHUYITA WYLIE Encounter No: [id number] : 1945 Primary Insurance: MEDICARE A & B Anticipated DC Date: 12-16-2018 Planned Disposition: Home DCP follow-up note: CM MET WITH PT IN ROOM TO DISCUSS DISCHARGE NEEDS AND PLANNING. CM DISCUSSED AVAILABILITY OF HOME HEALTH, REHAB SERVICES AND MEDICAL EQUIPMENT. PT DENIES DISCHARGE NEEDS. SPOUSE TO TRANSPORT HOME AT DISCHARGE. IMPORTANT MESSAGE FROM MEDICARE PROVIDED AND EXPLAINED. COMMUNICATIONS CLERK NURSE NOTIFIED. Chano Arreola, CASE MANAGEMENT DCP- Discharge Planning Updated by [email or web address]: Chano Arreola on 12/15/18 5:[address] Patient Name: CHUYITA WYLIE Admission Status: ER Accout number: [id number] Admission Date: 12-15-2018 : 1945 Admission Diagnosis: Attending: HIRO DELGADO Current LOS: 1 Anticipated DC Date: 12-15-2018 Planned Disposition: Home Primary Insurance: MEDICARE A & B Discharge Planning Comments: CM RECEIVED ORDER FOR LIVING WILL INFORMATION. CM MET WITH PT IN ROOM TO DISCUSS DISCHARGE PLANNING AND NEEDS. PT REPORTS LIVING AT HOME INDEPENDENTLY WITH HER SPOUSE. PT HAS A CANE AND BACK BRACE WITH NO MEDICAL EQUIPMENT PROVIDER PREFERENCE. PT HAS NO OUTSIDE SERVICES ASSISTING IN THE HOME. CM DISCUSSED AVAILABILITY OF HOME HEALTH, REHAB SERVICES AND MEDICAL EQUIPMENT. PT DENIES DISCHARGE NEEDS, REPORTS HER SPOUSE WILL PICK HER UP FOR DISCHARGE HOME. CM PROVIDED AND DISCUSSED LIVING WILL AND MEDICAL POWER OF CAREER DISCOVERY TEACHER BOOKLET. CM EXPLAINED AVAILABILITY OF FREE HOSPITAL NOTARY FOR THE MENTIONED PAPERWORK IF PT WISHES TO COMPLETE AT HOSPITAL. PT REPORTS UNDERSTANDING, DENIES FURTHER NEEDS. PT PLANS TO DISCHARGE HOME WITH SPOUSE, HAS NOT ANTICIPATED DISCHARGE NEEDS. CM TO FOLLOW AND ASSIST IF NEEDED. Library Services Dean: Chano Arreola DCPIA - Discharge Planning Initial Assessment Updated by [id number]: Chano Arreola on 12/15/18 6:41 pm * Is the patient Alert and Oriented? Yes * How many steps to enter\exit or inside your home? * PCP DR. RODRÍGUEZ * Pharmacy [facility] [address] * Preadmission Environment Home with Family * ADLs Independent * Equipment Cane Other * Other Equipment BACK BRACE NO MEDICAL EQUIPMENT PROVIDER PREFERENCE * List name and contact numbers for known caregivers / representatives who currently or will assist patient after discharge: CHRISTIANO WYLIE, SPOUSE, [phone] * Verbal permission to speak to the caregivers and representatives has been obtained from the patient. N/A * Community resources currently utilized None * Please name any agencies selected above. NONE * Additional services required to return to the preadmission environment? No * Can the patient safely return to the preadmission environment? Yes * Has this patient been hospitalized within the prior 30 days at any hospital? No Coverage Notice Reviewer: [id number] - Loree Lundberg Notice Issued Date-Time: 12/15/2018 15:00 Notice Type: Medicare Outpatient Observation Notice Notice Delivered To: Patient Relationship to Patient: Self Photoengraving Proofer Name: Delivery Method: HAND - Hand Delivered Margo Days: Prior Verbal Notification: Recipient Understood Notice: Yes Recipient Signature: Med Rec Note Co-signed by Attending: Coverage Notice Comment: PATIENT JUST BACK FROM PROCEDURE AND UNABLE TO SIGN THE PAPERWORK, STATED UNDERSTAND. COPY LEFT AT BEDSIDE WITH MY NAME AND NUMBER INCASE SHE WAKES UP AND HAS QUESTIONS OR DOESN'T REMEMBER OUR CONVERSATION. Reviewer: [id number] - Chano Arreola Notice Issued Date-Time: 12/16/2018 15:23 Notice Type: IM Discharge Notice Notice Delivered To: Patient Relationship to Patient: Photoengraving Proofer Name: Delivery Method: HAND - Hand Delivered Margo Days: Prior Verbal Notification: Recipient Understood Notice: Yes Recipient Signature: Yes Med Rec Note Co-signed by Attending: Coverage Notice Comment: Last DP export: 12/15/18 5:46 pm Patient Name: CHUYITA WYLIE Page [phone] at 1814 All edits/amendments must be made on the electronic document DICTATION DATE: 12/16/181813 REAL ESTATE ANALYST: HERBERT 12/16/181813 RPT#: [id number] DC DATE:12/16/18 STATUS: DIS IN [facility] [address] [place] [address] END OF REPORT
== END 2018-12-16 16:10 | disposition home or self-care (01) | DRG 287 ==
LOC: D.ER 12:25 → OBSVTIME 15:18 → D.M2 15:18
PROVIDERS: Family Medicine; ADMIT Internal Medicine Cardiovascular Disease
PROC: B2151ZZ Fluoroscopy of Left Heart using Low Osmolar Contrast (ICD-10-PCS; 2018-12-15)
PROC: 4A023N7 Measurement of Cardiac Sampling and Pressure, Left Heart, Percutaneous Approach (ICD-10-PCS; 2018-12-15)
PROC: B2111ZZ Fluoroscopy of Multiple Coronary Arteries using Low Osmolar Contrast (ICD-10-PCS; principal; 2018-12-15 14:30)
DX: I48.0 Paroxysmal atrial fibrillation (principal); I25.110 Atherosclerotic heart disease of native coronary artery with unstable angina pectoris; I10 Essential (primary) hypertension; E78.5 Hyperlipidemia, unspecified; Z95.1 Presence of aortocoronary bypass graft; Z95.5 Presence of coronary angioplasty implant and graft

== ENCOUNTER → 2019-01-12 10:33 | Outpatient (CLI) | payer MEDICARE, OTHER ==
[2018-12-14 16:38] VITALS: BMI 38.3
[~2019-01-12 10:33] MED LIST changes: +CO Q-10100 MG PO; +FISH OIL 1,0001 CA1 PO; +LIPITOR20 MG PO
== END | disposition home or self-care (01) ==
LOC: D.US 10:30
PROVIDERS: ATTEND Internal Medicine Interventional Cardiology
DX: I70.213 Atherosclerosis of native arteries of extremities with intermittent claudication, bilateral legs (principal)

== ENCOUNTER → 2020-03-14 10:46 | Outpatient (CLI) | payer MEDICARE, OTHER ==
[2018-12-14 16:38] VITALS: BMI 38.3
== END | disposition home or self-care (01) ==
LOC: D.HCCARDIO 10:46
PROVIDERS: ATTEND Internal Medicine Cardiovascular Disease
DX: R07.9 Chest pain, unspecified (principal); I25.10 Atherosclerotic heart disease of native coronary artery without angina pectoris; R06.02 Shortness of breath; I10 Essential (primary) hypertension; I48.0 Paroxysmal atrial fibrillation

== ENCOUNTER 2020-03-27 11:09 | Outpatient (CLI) | payer MEDICARE, OTHER ==
[~2020-03-27] VITALS: Ht 167.6 cm; Wt 107.5 kg
--- NOTE | ~2020-03-27 | HEMODYNAMI ---
PATIENT:CHUYITA WYLIE MEDICAL RECORD: [id number] : 43 LOCATION:[facility] ADMISSION DATE: 03/27/20 Generatedon:03/27/202013:43 Patient name: CHUYITA WYLIE Patient #: [id number] SSN: [id number] : 1945 Date of study: 03/27/2020 Page: Of Hemodynamic Procedure Report Patient Data Patient Demographics Procedure consent was obtained First Name: CHUYITA Gender: Female Last Name: DEJAN : 1945 [facility] Initial: MELIA Age: 75 year(s) Patient #: [id number] Race: SSN: [id number] Additional ID: [id number] Contact details Address: [address] State: [place] City: [place] Zip code: [address] Past Medical History Allergies Allergen Reaction Date Comments Reported Penicillins 11/21/2017 Aspirin 11/21/2017 Other allergy 11/21/2017 lisinopril Other allergy 03/27/2020 Admission Admission Data Admission Date: 03/27/2020 Admission Time: 11:09 Arrival Date: 03/27/2020 Arrival Time: 0:00 Admit Source: Other Insurance Payor: Medicare [facility] #: [id number] Height (in.): 26.77 BSA: 1.12 (m2) Height (cm.): 68 BMI: 231.5 (kg/m2) Weight (lbs.): 236 Weight (kg.): 107.05 Lab Results Lab Result Date: 03/27/2020 Lab Result Time: 0:00 Biochemistry Name Units Result Min Max BUN mg/dl 21 --(----)-* 7 18 Creatinine mg/dl 0.8 --(-*--)-- 0.6 1.3 eGFR ml/min 79.25821 *-(----)-- 90 120 NONAFRICAN CBC Name Units Result Min Max Hemoglobin g/dl 13.5 --(*---)-- 13.5 17.5 Procedure Procedure Types Cath Procedure Diagnostic Procedure [facility] w/Coronaries FFR/IVUS FFR Initial Sedation Charges Moderate Sedation up to 30 minutes PCI Procedure Coronary Stent Coronary Stent Initial Procedure Description Procedure Date Procedure Date: 03/27/2020 Procedure Start Time: 13:07 Procedure End Time: 13:40 Procedure Staff Name Function Chay Zelaya MD Performing Physician Mame Resendez RT Monitor April Car RT Scrub Maria T Worthy RN Nurse Indication Abnormal stress perfusion study Procedure Data Cath Procedure Fluoroscopy Diagnostic fluoroscopy Total fluoroscopy Time: 6.7 time: 6.7 min min Diagnostic fluoroscopy Total fluoroscopy dose: dose: 1150 mGy 1150 mGy Contrast Material Contrast Material Type Amount (ml) Isovue 300 0 Entry Location Entry Primary Successful Side Size Upsize Upsize Entry Closure Succes sful Closure Location (Fr) 1 (Fr) 2 (Fr) Remarks Device Remarks Femoral Right 5 Fr 6 Fr Exoseal artery Short Estimated blood loss: 10 ml Diagnostic catheters Device Type Used For End Catheter Placement MULTIPACK JL 4.0 5Fr Procedure catheter MULTIPACK 3DRC 5Fr Procedure catheter MULTIPACK Pigtail 5 Fr Ventriculography catheter Procedure Complications No complications Procedure Medications Medication Administration Route Dosage 0.9% NaCl I.V. 100 ml/hr Oxygen etCO2 Nasal cannula 2 l/min Lidocaine 2% added to field 20 Heparin Flush Bag added to field 2 bags (1000units/500ml NS) Versed I.V. 1 mg Fentanyl I.V. 50 mcg Versed I.V. 1 mg Fentanyl I.V. 50 mcg Heparin Bolus I.V. 2000 units Heparin Bolus I.V. 8000 units Hemodynamics Rest BSA: 1.12 (m2) HGB: 13.5 (g/dl) O2 Consumption: Estimated: 99.99 (ml/min) O2 Con sumption indexed: Estimated:89.28 (ml/min/m) Heart Rate: 66 (bpm) Pressure Samples Time Site Value (mmHg) Purpose Heart Use Rate(bpm) 13:15 LV 138/-6,12 Snapshot 62 13:17 LV 138/-5,7 Pullback 63 13:17 AO 140/57(91) Pullback 63 Gradients Valve Time Site 1 Site 2 Mean SEP/DFP Peak To Heart Use (mmHg) (sec/min) Peak Rate (mmHg) (bpm) Aortic 13:17 LV AO 0 21 0 63 138/-5,7 140/57(91) Calculations Valve P-P Mean Valve Index Valve Source Name Gradient Area Flow (cm2) Aortic 0 0 0 0 Snapshots Pre Cath Intra NCS Post Cath Vital Signs Time Heart Resp SPO2 etCO2 NIBP (mmHg) Rhythm Pain Sedation Rate (ipm) (%) (mmHg) Status Level (bpm) 12:55:22 70 16 99 34 180/90(136) NSR 0 (11) 10(A) , No pain 13:00:19 58 17 98 36.5 184/83(134) SB 0 (11) 10(A) , No pain 13:05:12 57 17 98 0.6 165/67(96) SB 0 (11) 10(A) , No pain 13:10:01 60 17 97 2.2 173/86(120) NSR 0 (11) 10(A) , No pain 13:14:46 62 18 98 26.1 166/85(131) NSR 0 (11) 10(A) , No pain 13:19:33 64 16 97 14.1 160/89(123) NSR 0 (11) 10(A) , No pain 13:24:17 63 16 98 38 178/90(134) NSR 0 (11) 10(A) , No pain 13:29:12 54 16 98 38.8 184/84(134) SB 0 (11) 10(A) , No pain 13:34:07 75 17 98 38 176/101(133) SB 0 (11) 10(A) , No pain 13:38:58 57 12 99 31.3 171/103(132) SB 0 (11) 10(A) , No pain Medications Time Medication Route Dose Verified Delivered Reason Notes Effectiveness by by 12:54:28 0.9% NaCl I.V. 100 Chay Maria T used for ml/hr Garcia Worthy maker up folding 12:54:36 Oxygen etCO2 2 Chay Maria T used for Nasal l/min Garcia Worthy procedure cannula RN 12:54:41 Lidocaine 2% added 20ml Chay Chay for local to vial Garcia Zelaya MD anesthetic field 12:54:46 Heparin Flush added 2 Chay Chay used for Bag to bags Garcia Zelaya MD procedure (1000units/500ml field NS) 13:01:32 Versed I.V. 1 mg Chay Maria T for sedation Garcia Worthy RN 13:01:43 Fentanyl I.V. 50 Chay Maria T for sedation mcg Garcia Worthy RN 13:07:17 Versed I.V. 1 mg Chay Maria T for sedation Garcia Worthy RN 13:07:23 Fentanyl I.V. 50 Chay Maria T for sedation mcg Garcia Worthy RN 13:25:20 Heparin Bolus I.V. 2000 Chay Maria T for units Garcia Worthy anticoagulation RN 13:32:48 Heparin Bolus I.V. 8000 Chay Maria T for units Garcia Worthy anticoagulation sales agent food vending service Log Time Note 12:45:53 Arrival Date: 03/27/2020 12:00:00 AM 12:46:24 Admit Source: Other 12:46:39 Insurance Payor : Medicare 12:46:44 Patient Height : 26.77 inches 12:47:01 Patient Weight : 236 lbs 12:52:27 Lab Result : eGFR NONAFRICAN 79.08420 ml/min 12:52:27 Lab Result : Hemoglobin 13.5 g/dl 12:52:27 Lab Result : BUN 21 mg/dl 12:52:27 Lab Result : Creatinine 0.8 mg/dl 12:53:00 Indication : Abnormal stress perfusion study 12:53:10 Procedure Status Elective Heart Cath (OP). 12:53:13 Maria T Worthy RN sent for patient. Start room use. 12:53:21 Time tracking: Regular hours (M-F 7:00 - 5:00) 12:53:26 Plan of Care:Hemodynamics will remain stable., Cardiac rhythm will remain stable., Comfort level will be maintained., Respiratory function will remain adequate., Patient/ family verbilizes understanding of procedure., Procedure tolerated without complication., Recovers from procedure without complications.. 12:53:32 Patient received from Pre/Post Procedure Room to CCL 1 Alert and oriented. Tansferred to table in Supine position. 12:53:35 Signed procedure consent form obtained from patient. 12:53:37 Warm blankets applied, and alex hugger turned on for patient comfort. 12:53:39 Correct patient and procedure confirmed by team. 12:53:40 ECG and BP/O2 sat monitors applied to patient. 12:53:42 Vital chart was started 12:53:49 Baseline sample Acquired. 12:53:54 Rhythm: sinus rhythm 12:53:55 Full Disclosure recording started 12:54:28 0.9% NaCl 100 ml/hr I.V. was administered by Maria T Worthy RN; used for procedure; Verbal order read back and verified. 12:54:36 Oxygen 2 l/min etCO2 Nasal cannula was administered by Maria T Worthy RN; used for procedure; Verbal order read back and verified. 12:54:41 Lidocaine 2% 20ml vial added to field was administered by Chay Zelaya MD; for local anesthetic; Verbal order read back and verified. 12:54:46 Heparin Flush Bag (1000units/500ml NS) 2 bags added to field was administered by Chay Zelaya MD; used for procedure; Verbal order read back and verified. 12:58:59 H&P Date Dictated: 03/07/2020 Within 30 days and on chart., H&P Addendum completed by physician on day of procedure. (MUST COMPLETE FOR ALL OUTPATIENTS). 12:59:01 Pre-procedure instructions explained to patient. 12:59:04 Family in waiting room. 12:59:08 Patient NPO since Midnight. 12:59:15 Patient allergic to Other allergy 12:59:18 Is the patient allergic to Iodine/contrast media? No. 12:59:21 Was the patient premedicated? Yes 12:59:23 Is patient on blood thinner?Yes 12:59:34 ACC The patient was administered the following blood thiners within the last 24 hours: ACCPlavix, Xarelto 12:59:42 Patient diabetic? No. 12:59:50 Previous problem with sedation/anesthesia? No ? 12:59:55 Snore? Yes 12:59:57 Sleep apnea? No 13:00:03 Dentures? Yes tight 13:00:08 Patient pain scale 0/10 ?. 13:00:19 IV patent on arrival in left forearm with 0.9% NaCl at [facility]. 13:00:28 Lab results completed and on chart. 13:00:43 Stress Test: yes; abnormal apical lateral 13:00:51 Right groin area was prepped with chlora-prep and draped in sterile fashion 13:00:52 Alarms reviewed by R. N. 13:00:53 Sharps counted by scrub and verified by R.N. 13:00:56 Physician paged 13:00:57 Physician arrived 13:00:58 Final Timeout: patient, procedure, and site verified with staff and physician. All members of the team are in agreement. 13:00:58 --------ALL STOP TIME OUT------ 13:01:01 Right groin site verified by team. 13:01:06 Fire Safety Assessment: A--An alcohol-based skin anteseptic being used preoperatively., C--Open oxygen or nitrous oxide is being used., D--An ESU, laser, or fiber-optic light is being used. 13:01:11 Physical assessment completed. ASA score P 2 - A patient with mild systemic disease as per Chay Zelaya MD. 13:01:15 2) 60-89 Mildly reduced kidney function, and other findings (as for stage 1) point to kidney disease. 13:01:20 Maximum allowable contrast dose (3.7 X eGFR X 0.75)220 ml. 13:01:25 Sedation plan: IV Moderate Sedation Medication:Versed, Fentanyl 13:01:32 Versed 1 mg I.V. was administered by Maria T Worthy RN; for sedation; Verbal order read back and verified. 13:01:33 Use device set Femoral Dx 13:01:34 ACIST Syringe (36948) opened to sterile field. 13:01:35 Medline Cath Pack ([id number]) opened to sterile field. 13:01:35 Bag Decanter (2002S) opened to sterile field. 13:01:37 DIAGNOSTIC Multipack 5Fr catheter set (GJ3657) opened to sterile field. 13:01:37 ACIST Manifold (97536) opened to sterile field. 13:01:37 ACIST Hand Control (23265) opened to sterile field. 13:01:42 SHEATH 5FR Lincoln (QBQ956) opened to sterile field. 13:01:43 Fentanyl 50 mcg I.V. was administered by Maria T Worthy RN; for sedation; Verbal order read back and verified. 13:01:44 EMERALD Guide Wire (688-747) opened to sterile field. 13:01:47 Tegaderm 4 x 4 (1626W) opened to sterile field. 13:06:55 Procedure started. 13:07:17 Versed 1 mg I.V. was administered by Maria T Worthy RN; for sedation; Verbal order read back and verified. 13:07:23 Fentanyl 50 mcg I.V. was administered by Maria T Worthy RN; for sedation; Verbal order read back and verified. 13:07:44 Local anesthetic to right femoral artery with Lidocaine 2% by Chay Zelaya MD.INITIAL ACCESS ONLY 13:08:33 A 5 Fr sheath was inserted into the Right Femoral artery 13:08:51 A MULTIPACK JL 4.0 5Fr catheter was advanced over the wire and used for Procedure. 13:08:54 LCA angiography performed. 13:10:31 Catheter removed. 13:10:38 A MULTIPACK 3DRC 5Fr catheter was advanced over the wire and used for Procedure. 13:10:40 RCA angiography performed. 13:12:00 Catheter removed. 13:12:08 A MULTIPACK Pigtail 5 Fr catheter was advanced over the wire and used for Ventriculography. 13:12:20 LV gram done using ANDRADE 13:16:43 EF : 55 % 13:16:55 Aortic Root visualized 13:18:33 Catheter removed. 13:19:55 Proceeding to intervention. 13:20:22 GUIDE 6FR XBLAD 3.5 catheter ([id number]) opened to sterile field. 13:20:51 Sheath upsized to a 6 Fr Short. 13:21:23 TUBING High Pressure Extension Tubing (Garcia) ([id number]) opened to sterile field. 13:21:24 SHEATH 6FR Lincoln (HCH921) opened to sterile field. 13:21:25 INFLATOR Merit BasixCompak (JH6603) opened to sterile field. 13:21:44 6 Fr XBLAD3.5 guide catheter was inserted over the wire 13:22:46 GUIDE 6FR XBLAD 4.0 catheter ([id number]) opened to sterile field. 13:23:08 Guide catheter removed. 13:23:18 6 Fr XBLAD4 guide catheter was inserted over the wire 13:23:35 Graton Verrata Plus pressure wire (42360T) opened to sterile field. 13:23:39 FFR/IFR wire advanced. 13:25:20 Heparin Bolus 2000 units I.V. was administered by Maria T Worthy RN; for anticoagulation; Verbal order read back and verified. 13:28:18 Wire advanced across lesion. 13:30:03 Diag1 lesion measured at .85 with IFR 13:32:48 Heparin Bolus 8000 units I.V. was administered by Mari aT Worthy RN; for anticoagulation; Verbal order read back and verified. 13:34:27 Place stent Inflation Number: 1 A INTEGRITY RX 2.25 x 12 stent ([id number]) was prepped and advanced across the 1st Diag 80. The stent was deployed at 14 NU for 0:16 (min:sec) . 13:35:34 EXOSEAL 6Fr (EX600) opened to sterile field. 13:36:07 Stent catheter was removed intact over wire. 13:36:08 Wire removed. 13:36:09 Guide catheter removed. 13:36:23 Sheath removed intact; hemostasis achieved with Exoseal to the Right Femoral artery. 13:36:26 Procedure ended.(Physican Out) 13:36:39 Fluoroscopy time 06.70 minutes. 13:36:44 Fluoroscopy dose: 1150 mGy 13:36:44 Flurop Dose total: 1150 13:37:10 Dose Area Product 90902 mGy/cm. 13:37:47 Contrast amount:Isovue 300 0ml. 13:37:51 Maximum allowable dose exceeded? No. 13:37:52 Sharps counted by scrub and verified by R.N. 13:37:55 Insertion/operative site no bleeding no hematoma. 13:38:00 Post right femoral artery:stable 13:38:09 Post Procedure Pulses reassessed and unchanged 13:38:15 Post-procedure physical assessment completed. ASA score P 3 - A patient with severe systemic disease as per Chay Zelyaa MD. 13:38:18 Post procedure rhythm: unchanged. 13:38:22 Estimated blood loss: 10 ml 13:38:25 Post procedure instruction explained to patient.Patient verbalizes understanding. 13:38:28 Patient needs reinforcement of post procedure teaching. 13:38:59 Procedure type changed to Cath procedure, Diagnostic procedure, LHC, LHC w/Coronaries, FFR/IVUS, FFR Initial, Sedation Charges, Moderate Sedation up to 30 minutes, PCI procedure, Coronary Stent, Coronary Stent Initial 13:39:01 Procedure and supply charges have been captured, reviewed, submitted and are correct. 13:39:43 Procedure Complication : No complications 13:39:45 Vital chart was stopped 13:39:47 [facility] Findings: MVD- PCI performed (see procedure note) 13:39:51 Operative report dictated upon procedure completion. 13:39:52 See physician's report for complete and final results. 13:39:54 Report given to Pre/Post Procedure Room. 13:39:57 Patient transfered to Pre/Post Procedure Room with Stretcher. 13:40:00 Full Disclosure recording stopped 13:40:00 Procedure ended. 13:40:03 End room use (Document Last) 13:40:09 ACT drawn and resulted at >400- out of range seconds. (normal therapeutic range 180-240 seconds). Intervention Summary Intervention Notes Time ActionType Lesion and Equipment Action# Pressure Duration Attributes Used 13:34:27 Place stent 1st Diag INTEGRITY RX 1 14 00:16 2.25 x 12 stent ([id number]) Device Usage Item Name Manufacture Quantity Catalog Hospital Part Current Mini mal Lot# / Number Charge Number Stock Stock Serial# Code ACIST Acist 1 06906 142405 627257 159754 20 Syringe Medical (52168) Systems Inc Bag Decanter Microtek 1 2002S 391978 10427 411971 5 (2001S) Medical Inc. Medline Cath Medline 1 [id number] 070541 68480 591699 5 Pack ([id number]) ACIST Hand Acist 1 98140 855405 672905 695436 5 Control Medical (42859) Systems Inc ACIST Acist 1 86693 592140 070079 510278 5 Manifold Medical (16090) Systems Inc DIAGNOSTIC Cardinal 1 AC4233 304183 40100 198377 30 Multipack Health 5Fr catheter set (QR7543) SHEATH 5FR Terumo 1 PEO970 612365 862473 133882 5 Lincoln (CLA919) EMERALD Cardinal 1 502-455 741807 301623 317457 5 Guide Wire Health (502-455) Tegaderm 4 x 3M 1 1626W 158171 681174 221534 5 4 (1626W) MULTIPACK JL Cardinal 1 833598 5 4.0 5Fr Health catheter MULTIPACK Cardinal 1 409004 5 3DRC 5Fr Health catheter MULTIPACK Cardinal 1 878941 5 Pigtail 5 Fr Health catheter GUIDE 6FR Cardinal 1 [id number] 051857 407219 835938 10 XBLAD 3.5 Health catheter ([id number]) TUBING High Merit 1 [id number] 305176 02896 546842 10 Pressure Medical Extension Tubing (Garcia) ([id number]) SHEATH 6FR Terumo 1 LOX708 398193 215578 145110 40 Lincoln (MZK891) INFLATOR Merit 1 QG1245 206191 074648 938609 15 Merit Medical BasixCompak (CL7340) GUIDE 6FR Cardinal 1 [id number] 639332 915126 944445 3 XBLAD 4.0 Health catheter (44526145) Graton Graton 1 48954E 375188 033799063 520484 5 Verrata Plus pressure wire (12110P) INTEGRITY RX Medtronic 1 [id number] 857111 775681 298192 5 [id number] 2.25 x 12 stent ([id number]) EXOSEAL 6Fr Cardinal 1 EX600 041534 984566 256600 10 (EX600) Health Signature Audit [place] Stage Time Signature Unsigned Intra-Procedure 03/27/2020 Maria T Worthy 1:40:37 PM RN Intra-Procedure 03/27/2020 Mame Resendez 1:41:11 PM RT(R) Intra-Procedure 03/27/2020 Chay Zelaya MD 1:43:03 PM [facility] [address] [place] [address]
[2020-03-27] MEDS ORDERED: XARELTO20 MG PO (11:24)
[2020-03-27] MEDS ORDERED: PLAVIX75 MG PO (11:27)
[2020-03-27] MEDS ORDERED: DIOVAN80 MG PO (11:29)
[2020-03-27 11:42] VITALS: BP 208/99; Ht 167.6 cm; Wt 107.5 kg
[2020-03-27 12:06] LABS: BASOPHILS 0.4 % (0-2); HEMATOCRIT 44.3 % (36.0-48.0); HEMOGLOBIN 14.7 g/dL (12-16); IMMATURE GRANULOCYTES 0.2 % (0-5); LYMPHOCYTES 27.8 % (15-50); MCHC 33.2 g/dL (31.0-37.0); MCV 90.4 fL (80.0-100.0); MEAN PLATELET VOLUME 9.4 fL (7.4-10.4); MONOCYTES 6.8 % (2-11); NEUTROPHILS 62.8 % (40-80); RDW 13.4 % (11.5-14.5); WBC 9.9 10x3/uL (4.8-10.8)
[2020-03-27 12:18] LABS: PLATELET COUNT 317 10x3/uL (130-400)
[2020-03-27 12:24] LABS: ALT (SGPT) 16 U/L (10-68); CALC OSMOLALITY 266 mosm/kg (275-300); CARBON DIOXIDE 27.7 mmol/L (21.0-32.0); CHLORIDE - SERUM 98 mmol/L (98-107); CHOL - HDL RATIO 3.6 ratio (2.3-4.1); CHOLESTEROL, TOTAL 165 mg/dL (0-200); CREATININE - SERUM 0.6 mg/dL (0.6-1.3); GLUCOSE 119 mg/dL (74-106); HDL CHOLESTEROL 46 mg/dL (32-96); LDL CHOLESTEROL 93 mg/dL (0-100); POTASSIUM - SERUM 3.2 mmol/L (3.5-5.1); SODIUM 134 mmol/L (136-145); TRIGLYCERIDE 134 mg/dL (30-200); UREA NITROGEN 6 mg/dL (7-18); eGFR NON AFRICAN AMERICAN > 90 mL/min (90-120)
--- NOTE | 2020-03-27 13:50 | NUR ---
PT REC'D TO ROOM 5 VIA STRETCHER FROM TAXICAB COORDINATOR. MONITORS ESTAB. SEE HALFTONE OPERATOR. ALARMS ON AND C/L IN REACH.
--- NOTE | 2020-03-27 14:05 | NUR ---
R GROIN SITE SOFT, NO S/S BLEEDING OR HEMATOMA. R LEG/FOOT WARM WITH PALP PULSES. B/P 141/71, HR 46. PT REPORTS "FEELING BETTER NOW THAT IM NOT SHAKING". ALARMS ON AND C/L IN REACH.
--- NOTE | 2020-03-27 14:35 | NUR ---
DR DELGADO NOTIFIED OF HR FLUCTUATING BETWEEN 40- 70S WITH PVCS NOTED, B/P 130/83. R GROIN SITE SOFT, NO S/S BLEEDING OR HEMATOMA. PT GIVEN SIP OF WATER, DENIES PAIN OR NEEDS. C/L IN REACH.
--- NOTE | 2020-03-27 14:50 | NUR ---
PT RESTING QUIETLY, R GROIN SITE SOFT, NO S/S BLEEDING OR HEMATOMA. B/P 113/60. ALARMS ON AND C/L IN REACH.
--- NOTE | 2020-03-27 14:55 | NUR ---
DR. DELGADO IN TO SEE PT, UPDATE GIVEN AND QUESTIONS ANSWERED.
--- NOTE | 2020-03-27 15:25 | NUR ---
PT VOIDED 550 ML CLEAR, YELLOW URINE ON BEDPAN. OLLIE-CARE PROVIDED. R GROIN SITE SOFT, NO S/S BLEEDING OR HEMATOMA. ALARMS ON AND C/L IN REACH.
--- NOTE | 2020-03-27 16:00 | NUR ---
PT RESTING QUIETLY, VSS. I SPOKE WITH PTS - UPDATED AND DISCUSSED DISCHARGE INSTRUCTIONS. PLAN FOR PT TO D/C HOME AT 1800. R GROIN SITE SOFT, C/D/I.
--- NOTE | 2020-03-27 16:30 | NUR ---
R GROIN SITE C/D/I. PEDAL PULSES PALP. VSS. PT DENIES PAIN OR NEEDS.
--- NOTE | 2020-03-27 16:51 | NUR ---
R GROIN SITE SOFT, NO S/S BLEEDING. HOB ELEVATED TO 30 DEGREES.
--- NOTE | 2020-03-27 17:00 | NUR ---
PT TOLERATING SITTING UP, DSG TO R GROIN SITE C/D/I. PULSES PALP. SANDWICH TRAY AND WATER PROVIDED. ALARMS ON AND C/L IN REACH.
--- NOTE | 2020-03-27 17:28 | NUR ---
R GROIN SITE C/D/I, PIV D/C'D INTACT, DSG APPLIED. PT ALLOWED UP TO GET DRESSED AND GO TO BR INDEPENDENTLY.
--- NOTE | 2020-03-27 17:40 | NUR ---
ALL D/C INSTRUCTIONS REVIEWED WITH PT, INCLUDING RESTRICTIONS, PRECAUTIONS AND F/U APPT. PT VERBALIZES UNDERSTANDING.
--- NOTE | 2020-03-27 17:50 | NUR ---
PT D/C'D VIA WC TO PRIVATE VEHICLE WITH . PT HAS ALL BELONGINGS AND PAPERWORK.
== END 2020-03-27 17:50 | disposition home or self-care (01) ==
LOC: D.CATH 11:09
PROVIDERS: ATTEND Internal Medicine Cardiovascular Disease
DX: I25.119 Atherosclerotic heart disease of native coronary artery with unspecified angina pectoris (principal); I10 Essential (primary) hypertension; R06.09 Other forms of dyspnea; R07.9 Chest pain, unspecified; I48.0 Paroxysmal atrial fibrillation; E78.5 Hyperlipidemia, unspecified; R94.30 Abnormal result of cardiovascular function study, unspecified